=== PATIENT | male | born 1950 | race Two or more races ===

== ENCOUNTER 2018-11-08 09:31 | Emergency (ER) | payer MEDICARE, MEDICAID ==
[~2018-11-08] VITALS: Ht 177.8 cm; Wt 136.1 kg
[2018-11-08 09:53] VITALS: BP 158/89
[2018-11-08] MEDS ORDERED: HYDROcodone-ACET 10/325MG TAB PO ONE (10:00)
[2018-11-08] MEDS ORDERED: KETOROLAC TROMETH 60MG/2ML VIAL IM ONE (10:00)
== END 2018-11-08 10:48 | disposition home or self-care (01) ==
LOC: EDBD 09:31 → ER 09:31
DX: M54.9 Dorsalgia, unspecified (principal); I10 Essential (primary) hypertension; G89.4 Chronic pain syndrome; G62.9 Polyneuropathy, unspecified; Z76.0 Encounter for issue of repeat prescription
CPT/HCPCS: 96372; 99283; J1885